=== PATIENT | male | born 1970 | race Caucasian/White ===

== ENCOUNTER 2021-05-27 13:33 | Outpatient (CLI) | payer OTHER, SELFPAY ==
[2021-05-27 13:51] LABS: Hematocrit 42.4 % (42.0-52.0); Hemoglobin 14.2 g/dL (14.0-18.0); Mean Corpuscular HGB Conc 33.5 g/dl (32-36); Mean Corpuscular Hemoglobin 31.6 pg (26-34); Mean Corpuscular Volume 94.4 fl (80-100); Mean Platelet Volume 9.4 fl (7.4-10.4); Platelet Count Result 215 k/mm3 (150-375); Red Blood Count 4.49 M/mm3 (4.6-6.20); Red Cell Distribution Width 13.6 % (11.5-14.5); White Blood Count 6.8 K/mm3 (4.5-10.0)
[2021-05-27 14:14] LABS: INR 0.9; Prothrombin Time 12.5 Seconds (11.1-14.7)
[2021-05-27 14:58] LABS: HIV 1/2 Ab P24 Ag Result Negative (Negative)
[2021-06-02 18:41] LABS: ALT 28 U/L (9-46); Alpha-2-Macroglobulin 189 mg/dL (106-279); Apolipoprotein A1 141 mg/dL (94-176); Fibrosis Score 0.24; Fibrosis Stage F0-F1; GGT 61 U/L (3-95); Haptoglobin 168 mg/dL (43-212); Necroinflammat Act Grade A0; Total Bilirubin 0.5 mg/dL (0.2-1.2)
== END 2021-05-27 13:34 | disposition home or self-care (01) ==
PROVIDERS: PCP Internal Medicine; Visit Provider Internal Medicine Gastroenterology
DX: B19.20 Unspecified viral hepatitis C without hepatic coma (principal)
CPT/HCPCS: 36415; 81596; 85027; 85610; 86703; G0432